=== PATIENT | female | born 1980 | race Caucasian/White ===

== ENCOUNTER 2016-08-29 15:53 | Emergency (ER) | payer OTHER ==
[~2016-08-29] VITALS: Ht 177.8 cm; Wt 70.8 kg
[2016-08-29 16:32] LABS: BASOPHIL % 1.6 % (0-2); PLATELET COUNT 390 x10^3mcL (130-400); RED CELL DISTRIBUTION WIDTH 12.4 % (11.5-14.5)
[2016-08-29 16:37] LABS: CALCIUM 8.4 mg/dL (8.5-10.1); CARBON DIOXIDE 31.3 mmol/L (21-32); CHLORIDE SERUM 104 mmol/L (98-107); CREATININE SERUM 0.8 mg/dL (0.6-1.0); GFR1 > 60 mL/min; GLUCOSE SERUM 88 mg/dL (74-106); POTASSIUM SERUM 4.1 mmol/L (3.5-5.1); SODIUM SERUM 139 mmol/L (136-145)
[2016-08-29 16:44] LABS: ALBUMIN 3.5 g/dL (3.4-5.0); ALKALINE PHOSPHATASE 98 U/L (46-116); ALT/SGPT 31 U/L (14-59); AST/SGOT 19 U/L (15-37); TOTAL PROTEIN, SERUM 7.2 g/dL (6.4-8.2)
[2016-08-29 18:02] VITALS: BP 126/99
== END 2016-08-29 18:02 | disposition home or self-care (01) ==
LOC: ED 15:53
PROVIDERS: Emergency Medicine
DX: R07.9 Chest pain, unspecified (principal); N64.4 Mastodynia
CPT/HCPCS: 83880; J1885; J2060; J7040

== ENCOUNTER 2019-08-12 10:05 | Emergency (ER) | payer MEDICAID ==
[~2019-08-12] VITALS: Ht 175.3 cm; Wt 69.4 kg
[2019-08-12 10:15] VITALS: BP 129/94; Ht 175.3 cm; Wt 69.4 kg
== END 2019-08-12 11:33 | disposition home or self-care (01) ==
LOC: ED 10:05
DX: S61.214A Laceration without foreign body of right ring finger without damage to nail, initial encounter (principal); W25.XXXA Contact with sharp glass, initial encounter; Y93.G1 Activity, food preparation and clean up; Y92.89 Other specified places as the place of occurrence of the external cause; Y99.8 Other external cause status
CPT/HCPCS: 90715; J2001